=== PATIENT | male | born 1930 | race Caucasian/White ===

== ENCOUNTER 2016-05-15 05:24 | Emergency (ER) | payer MEDICARE ==
[2016-05-15] MEDS ORDERED: Aspirin Low Dose CHEW TAB* 81 MG PO ONE (05:38)
[2016-05-15] MEDS ORDERED: NS 0.9% 1000 ML* 1,000 ML IV SCH (05:45)
[2016-05-15 06:24] LABS: Hematocrit 41 % (42-52); Hemoglobin 13.9 g/dl (14.0-18.0); Mean Corpuscular HGB Conc 34 g/dl (31-36); Mean Corpuscular Hemoglobin 30 pg (27-31); Mean Corpuscular Volume 89 fL (80-94); Mean Platelet Volume 10 um3 (7.4-10.4); Red Blood Count 4.56 10^6/ul (4.0-5.4); Red Cell Distribution Width 13 % (10.5-15); White Blood Count 9.4 10^3/ul (3.5-10.8)
[2016-05-15 06:37] LABS: Troponin I 0.01 ng/mL (<0.04)
[2016-05-15 06:38] LABS: BUN/Creatinine Ratio 22.1 (8-20); C Reactive Protein 19.85 mg/L (< 5.00); Calcium 9.7 mg/dL (8.6-10.3); EGFR African American 57.6 (>60); EGFR Non-African American 44.8 (>60); Magnesium 1.8 mg/dL (1.9-2.7); Potassium 4.6 mmol/L (3.5-5.0); Total Bilirubin 0.9 mg/dL (0.2-1.0)
[2016-05-15 07:05] LABS: TSH (Thyroid Stimulating Horm) 2.17 mcIU/mL (0.34-5.60)
[2016-05-15 07:07] LABS: Urine Bilirubin Negative (Negative); Urine Glucose 3+(>=500 mg/dL) (Negative); Urine Nitrite Negative (Negative)
[2016-05-15] MEDS ORDERED: Ibuprofen TAB* 200 MG PO ONE (07:09)
--- NOTE | 2016-05-15 07:12 | ED ---
Dajuan Gutierrez Adam, scribed for Toñito Connors MD on 05/15/16 at 0546 . HPI Chest Pain - HPI Summary HPI Summary: Pt is an 86 year old male presenting with intermittent CP since falling 2 nights ago. He states that he fell in the bathroom 2 nights ago and struck the side of his body on the bathtub. He is unsure what caused him to fall, but he has been c/o intermittent pain in his left ribs since the fall. He did not go to the hospital after the fall until this morning. He states that the pain set on at approximately 04:15 this morning after he went to the bathroom. He describes it as the same left-sided rib pain he has been having since the fall but states that it is worse this morning. Movement, palpation, and deep breaths aggravate the pain. Pt denies abdominal pain and arthralgia. He states that fluid intake and bowel/ bladder function have been normal. PMHx of HTN and DM, both controlled by meds. He also reports chronic numbness in his feet for several years. - History of Current Complaint Hx Obtained From: Patient Onset/Duration: Started Days Ago, Traumatic, Still Present Timing: Constant, Lasting Days Initial Severity: Mild Current Severity: Moderate Pain Intensity: 2 Pain Scale Used: 0-10 Numeric Chest Pain Location: Left Lateral Chest Pain Radiates: No Aggravating Factor(s): Movement, Deep Breaths, Other: - Palpation Alleviating Factor(s): Nothing Associated Signs and Symptoms: Positive: Negative - Allergy/Home Medications Allergies/Adverse Reactions: Allergies Allergy/AdvReac Type Severity Reaction Status Date / Time No Known Allergies Allergy Verified 12/06/15 19:30 PMH/Surg Hx/FS Hx/Imm Hx Endocrine/Hematology History: Reports: Hx Anticoagulant Therapy - aspirin daily. , Hx Diabetes Denies: Hx Thyroid Disease Cardiovascular History: Reports: Hx Hypertension Denies: Hx Congestive Heart Failure, Hx Deep Vein Thrombosis, Hx Myocardial Infarction, Hx Pacemaker/ICD Respiratory History: Denies: Hx Asthma, Hx Chronic Obstructive Pulmonary Disease (COPD), Hx Lung Cancer, Hx Pneumonia, Hx Pulmonary Embolism GI History: Denies: Hx Gall Bladder Disease, Hx Gastrointestinal Bleed, Hx Ulcer, Hx Urosepsis History: Denies: Hx Kidney Stones, Hx Renal Disease Neurological History: Denies: Hx Dementia, Hx Migraine, Hx Seizures, Hx Transient Ischemic Attacks (TIA) Psychiatric History: Denies: Hx Anxiety, Hx Depression, Hx Schizophrenia, Hx Bipolar Disorder - Surgical History Surgery Procedure, Year, and Place: benign colon tumor Infectious Disease History: No Infectious Disease History: Denies: Hx Clostridium Difficile, Hx Hepatitis, Hx Human Immunodeficiency Virus (HIV), Hx of Known/Suspected MRSA, Hx Shingles, Hx Tuberculosis, Hx Known/ Suspected VRE, Hx Known/Suspected VRSA, History Other Infectious Disease, Traveled Outside the [place] in Last 30 Days - Family History Known Family History: Positive: Cardiac Disease Negative: Hypertension, Diabetes, Renal Disease - Social History Occupation: Retired Lives: With Family - Alcohol Use: None Hx Substance Use: No Substance Use Type: Reports: None Hx Tobacco Use: Yes Smoking Status (MU): Former Smoker Type: Cigarettes Length of Time of Smoking/Using Tobacco: 38 years Have You Smoked in the Last Year: No Review of Systems Positive: Chest Pain Negative: Abdominal Pain Positive: Myalgia - Left ribs. Negative: Arthralgia Positive: Numbness - Chronic in feet All Other Systems Reviewed And Are Negative: Yes Physical Exam Triage Information Reviewed: Yes Vital Signs On Initial Exam: Initial Vitals Temp Pulse Resp BP Pulse Ox 98.4 F 69 18 174/75 95 05/15/16 05:26 05/15/16 05:26 05/15/16 05:26 05/15/16 05:26 05/15/16 05:26 Vital Signs Reviewed: Yes Appearance: Positive: Well-Appearing, No Pain Distress Skin: Positive: Warm, Skin Color Reflects Adequate Perfusion, Dry Head/Face: Positive: Normal Head/Face Inspection Eyes: Positive: EOMI, DOREEN ENT: Positive: Normal ENT inspection Neck: Positive: Supple, Nontender Respiratory/Lung Sounds: Positive: Clear to Auscultation, Breath Sounds Present Cardiovascular: Positive: RRR Abdomen Description: Positive: Nontender, Soft Bowel Sounds: Positive: Present Musculoskeletal: Positive: Strength/ROM Intact, Other - Tenderness to palpation in the left lateral lower ribs Neurological: Positive: Normal, Sensory/Motor Intact, Alert, Oriented to Person Place, Time Psychiatric: Positive: Affect/Mood Appropriate Diagnostics - Vital Signs Vital Signs Temp Pulse Resp BP Pulse Ox 05/15/16 05:26 98.4 F 69 18 174/75 95 - Laboratory Lab Results: Lab Results 05/15/16 05/15/16 05/15/16 Range/Units 06:00 06:00 06:00 WBC 9.4 (3.5-10.8) 10^3/ul RBC 4.56 (4.0-5.4) 10^6/ul Hgb 13.9 L (14.0-18.0) g/dl Hct 41 L (42-52) % MCV 89 (80-94) fL MCH 30 (27-31) pg MCHC 34 (31-36) g/dl RDW 13 (10.5-15) % Plt Count 118 L (150-450) 10^3/ul MPV 10 (7.4-10.4) um3 Neut % (Auto) 79.1 (38-83) % Lymph % (Auto) 12.7 L (25-47) % [place] % (Auto) 6.1 (1-9) % Eos % (Auto) 1.6 (0-6) % Baso % (Auto) 0.5 (0-2) % Absolute Neuts (auto) 7.4 (1.5-7.7) 10^3/ul Absolute Lymphs (auto) 1.2 (1.0-4.8) 10^3/ul Absolute Monos (auto) 0.6 (0-0.8) 10^3/ul Absolute Eos (auto) 0.1 (0-0.6) 10^3/ul Absolute Basos (auto) 0 (0-0.2) 10^3/ul Absolute Nucleated RBC 0 10^3/ul Nucleated RBC % 0 INR (Anticoag Therapy) (0.89-1.11) APTT (26.0-36.3) seconds D-Dimer, Quantitative (Less Than 230) ng/mL Sodium 132 L (133-145) mmol/L Potassium 4.6 (3.5-5.0) mmol/L Chloride 98 L (101-111) mmol/L Carbon Dioxide 24 (22-32) mmol/L Anion Gap 10 (2-11) mmol/L BUN 33 H (6-24) mg/dL Creatinine 1.49 H (0.67-1.17) mg/dL Est GFR ( Amer) 57.6 (>60) Est GFR (Non-Af Amer) 44.8 (>60) BUN/Creatinine Ratio 22.1 H (8-20) Glucose 425 H (70-100) mg/dL Lactic Acid 1.3 (0.5-2.0) mmol/L Calcium 9.7 (8.6-10.3) mg/dL Magnesium 1.8 L (1.9-2.7) mg/dL Total Bilirubin 0.90 (0.2-1.0) mg/dL AST 17 (13-39) U/L ALT 26 (7-52) U/L Alkaline Phosphatase 79 (34-104) U/L Total Creatine Kinase 61 (10-223) U/L CK-MB (CK-2) 1.1 (0.6-6.3) ng/mL Troponin I 0.01 (<0.04) ng/mL C-Reactive Protein 19.85 H (< 5.00) mg/L B-Natriuretic Peptide ( - 100) pg/mL Total Protein 7.0 (6.4-8.9) g/dL Albumin 4.0 (3.2-5.2) g/dL Globulin 3.0 (2-4) g/dL Albumin/Globulin Ratio 1.3 (1-3) Lipase 23 (11.0-82.0) U/L TSH 2.17 (0.34-5.60) mcIU/mL Urine Color Urine Appearance Urine pH (5-9) Ur Specific [place] (1.010-1.030) Urine Protein (Negative) Urine Ketones (Negative) Urine Blood (Negative) Urine Nitrate (Negative) Urine Bilirubin (Negative) Urine Urobilinogen (Negative) Ur Leukocyte Esterase (Negative) Urine Glucose (Negative) 05/15/16 05/15/16 05/15/16 Range/Units 06:00 06:30 06:40 WBC (3.5-10.8) 10^3/ul RBC (4.0-5.4) 10^6/ul Hgb (14.0-18.0) g/dl Hct (42-52) % MCV (80-94) fL MCH (27-31) pg MCHC (31-36) g/dl RDW (10.5-15) % Plt Count (150-450) 10^3/ul MPV (7.4-10.4) um3 Neut % (Auto) (38-83) % Lymph % (Auto) (25-47) % [place] % (Auto) (1-9) % Eos % (Auto) (0-6) % Baso % (Auto) (0-2) % Absolute Neuts (auto) (1.5-7.7) 10^3/ul Absolute Lymphs (auto) (1.0-4.8) 10^3/ul Absolute Monos (auto) (0-0.8) 10^3/ul Absolute Eos (auto) (0-0.6) 10^3/ul Absolute Basos (auto) (0-0.2) 10^3/ul Absolute Nucleated RBC 10^3/ul Nucleated RBC % INR (Anticoag Therapy) 0.97 (0.89-1.11) APTT 24.6 L (26.0-36.3) seconds D-Dimer, Quantitative 275 H (Less Than 230) ng/mL Sodium (133-145) mmol/L Potassium (3.5-5.0) mmol/L Chloride (101-111) mmol/L Carbon Dioxide (22-32) mmol/L Anion Gap (2-11) mmol/L BUN (6-24) mg/dL Creatinine (0.67-1.17) mg/dL Est GFR ( Amer) (>60) Est GFR (Non-Af Amer) (>60) BUN/Creatinine Ratio (8-20) Glucose (70-100) mg/dL Lactic Acid (0.5-2.0) mmol/L Calcium (8.6-10.3) mg/dL Magnesium (1.9-2.7) mg/dL Total Bilirubin (0.2-1.0) mg/dL AST (13-39) U/L ALT (7-52) U/L Alkaline Phosphatase (34-104) U/L Total Creatine Kinase (10-223) U/L CK-MB (CK-2) (0.6-6.3) ng/mL Troponin I (<0.04) ng/mL C-Reactive Protein (< 5.00) mg/L B-Natriuretic Peptide 86 ( - 100) pg/mL Total Protein (6.4-8.9) g/dL Albumin (3.2-5.2) g/dL Globulin (2-4) g/dL Albumin/Globulin Ratio (1-3) Lipase (11.0-82.0) U/L TSH (0.34-5.60) mcIU/mL Urine Color Yellow Urine Appearance Clear Urine pH 5.0 (5-9) Ur Specific [place] 1.018 (1.010-1.030) Urine Protein Negative (Negative) Urine Ketones Trace H (Negative) Urine Blood Negative (Negative) Urine Nitrate Negative (Negative) Urine Bilirubin Negative (Negative) Urine Urobilinogen Negative (Negative) Ur Leukocyte Esterase Negative (Negative) Urine Glucose 3+(>=500 mg/dl) H (Negative) Result Diagrams: 05/15/16 06:00 05/15/16 06:00 Lab Statement: Any lab studies that have been ordered have been reviewed, and results considered in the medical decision making process. Chest Pain Course/Dx - Course Assessment/Plan: DISCUSSED RESULTS WITH PATIENT. THE PAIN THE PATIENT CAME FOR IS REPRODUCED BY PALPATION OF THE LEFT LATERAL RIBS AT THE SITE OF THE FRACTURES SEEN ON CXR. DISCHARGE HOME STABLE. - Diagnoses Provider Diagnoses: Rib fractures Discharge - Discharge Plan Condition: Stable Disposition: HOME Patient Education Materials: Ibuprofen (By mouth), How to Use an Incentive Spirometer (ED), Rib Fracture (ED) Additional Instructions: FOLLOW UP WITH YOUR DOCTOR. RETURN TO THE EMERGENCY DEPARTMENT FOR ANY WORSENING OF YOUR CONDITION OR QUESTIONS OR CONCERNS. The documentation as recorded by the Dajuan gómez Adam accurately reflects the service I personally performed and the decisions made by me, Toñito Connors MD.
[2016-05-15 07:46] VITALS: BP 164/79
--- NOTE | 2016-05-15 08:28 | RAD ---
Indication: Chest pain. 2 views of the chest demonstrates no mediastinal shift. Heart is of normal size and configuration. Lung block appear clear. There are no prior studies available for comparison. IMPRESSION: No active cardiopulmonary disease is noted.
--- NOTE | 2016-05-15 08:29 | RAD ---
INDICATION: Left-sided chest pain 2 days after a fall COMPARISON: None. TECHNIQUE: 4 views of the left ribs were obtained. FINDINGS: Minimally displaced fractures are identified involving the left lateral eighth and ninth ribs. There is no pneumothorax. The heart and lungs are otherwise clear. IMPRESSION: Minimally displaced fractures of the lateral left eighth and ninth ribs.
== END 2016-05-15 07:45 | disposition home or self-care (01) ==
LOC: ED 05:24
DX: S22.42XA Multiple fractures of ribs, left side, initial encounter for closed fracture (principal); R07.9 Chest pain, unspecified; R07.81 Pleurodynia; Z87.891 Personal history of nicotine dependence; W19.XXXA Unspecified fall, initial encounter; Y93.9 Activity, unspecified; Y92.9 Unspecified place or not applicable; Y99.9 Unspecified external cause status
CPT/HCPCS: 36415; 71020; 80053; 81003; 82550; 82553; 83605; 83690; 83735; 83880; 84443; 84484; 85025; 85379; 85610; 85730; 86140; 93005; 99283; A9270-GY

== ENCOUNTER 2020-11-21 13:44 | Inpatient (IN) ==
[2020-11-21 14:30] LABS: ABS Basophils 0.1 10^3/ul (0-0.2); ABS Lymphocytes 0.8 10^3/ul (1.0-4.8); ABS Monocytes 0.4 10^3/ul (0-0.8); Eosinophil % 0.4 %; Hematocrit 48 % (42-52); Hemoglobin 16.1 g/dL (14.0-18.0); Lymphocyte % 11.4 %; Mean Corpuscular HGB Conc 34 g/dL (31-36); Mean Corpuscular Hemoglobin 32 pg (27-31); Mean Corpuscular Volume 96 fL (80-94); Mean Platelet Volume 9.3 fL (7.4-10.4); Platelet Count 144 10^3/uL (150-450); Red Blood Count 4.99 10^6 /uL (4.18-5.48); Red Cell Distribution Width 14 % (10-15); White Blood Count 7.3 10^3/uL (3.5-10.8)
[2020-11-21 14:48] LABS: ALT 42 U/L (7-52); Albumin 4.1 g/dL (3.2-5.2); Albumin/Globulin Ratio 1.4 (1-3); Alkaline Phosphatase 87 U/L (35-149); Blood Urea Nitrogen 45 mg/dL (6-24); CO2 Carbon Dioxide 24 mmol/L (22-32); Calcium 9.7 mg/dL (8.6-10.3); Chloride 108 mmol/L (101-111); EGFR African American 61.3 (>60); EGFR Non-African American 50.6 (>60); Glucose 195 mg/dL (70-100); Magnesium 1.9 mg/dL (1.9-2.7); Sodium 141 mmol/L (135-145); Total Protein 7.1 g/dL (6.4-8.9)
[2020-11-21 14:49] LABS: Troponin I 0.01 ng/mL (<0.03)
[2020-11-21] MEDS ORDERED: Lidocaine/Epineph/Tetraca GEL 3 ML GEL IN SYR TOPICAL ONE (14:55)
[2020-11-21 15:03] LABS: Anion Gap 9 mmol/L (2-11)
[2020-11-21 15:32] LABS: TSH Ultra Thyroid Stim Horm 2.93 mcIU/mL (0.34-5.60)
[2020-11-21] MEDS ORDERED: Magnesium Hydroxide LIQ 30 ML UDC PO PRN (17:15)
[2020-11-21 18:37] LABS: Creatine Kinase 65 U/L (10-223)
[2020-11-21 19:53] LABS: Urine Appearance Clear; Urine Bilirubin Negative (Negative); Urine Blood Negative (Negative); Urine Color Yellow; Urine Glucose 3+(>=500 mg/dL) (Negative); Urine Ketones Negative (Negative); Urine Nitrite Negative (Negative); Urine Protein Negative (Negative); Urine Specific Gravity 1.021 (1.002-1.030); Urine Urobilinogen Negative (Negative)
[2020-11-21] MEDS ORDERED: Dextran 70/Hypromellose Tears Eye Drops 15 ml BTL (for Artificials Tears) BOTH EYES PRN (20:22)
[2020-11-22 05:58] LABS: Anion Gap 9 mmol/L (2-11); Blood Urea Nitrogen 44 mg/dL (6-24); CO2 Carbon Dioxide 26 mmol/L (22-32); Calcium 9.6 mg/dL (8.6-10.3); Chloride 106 mmol/L (101-111); EGFR African American 56.8 (>60); EGFR Non-African American 46.9 (>60); Glucose 140 mg/dL (70-100); Potassium 4.1 mmol/L (3.5-5.0); Sodium 141 mmol/L (135-145)
[2020-11-22] MEDS: EMPAGLIFLOZIN 25 MG PO SCH (09:17)
[2020-11-22] MEDS: Cholecalciferol (VIT D3) 1,000 unit TAB PO SCH (09:17)
[2020-11-22 11:29] LABS: Troponin I 0.04 ng/mL (<0.03)
[2020-11-22] MEDS ORDERED: Lidocaine 1% w EPI 1:100,000 MDV 20 ML VIAL ONE (12:21)
[2020-11-22 14:47] LABS: Potassium 4.6 mmol/L (3.5-5.0)
[2020-11-22 15:17] LABS: Troponin I 0.03 ng/mL (<0.03)
[2020-11-23 07:12] LABS: Calcium 9.3 mg/dL (8.6-10.3); EGFR African American 68.3 (>60); EGFR Non-African American 56.5 (>60); Potassium 4.1 mmol/L (3.5-5.0)
[2020-11-23] MEDS: EMPAGLIFLOZIN 25 MG PO SCH (08:55)
[2020-11-23] MEDS: Cholecalciferol (VIT D3) 1,000 unit TAB PO SCH (09:00)
[2020-11-23] MEDS ORDERED: Aminophylline 25 MG/ML VIAL ONE (10:32)
[2020-11-23] MEDS ORDERED: Regadenoson 0.4 MG/5 ML SYRINGE ONE (10:32)
[2020-11-24] MEDS: Cholecalciferol (VIT D3) 1,000 unit TAB PO SCH (09:07)
[2020-11-24 09:09] LABS: Calcium 8.9 mg/dL (8.6-10.3)
[2020-11-24] MEDS: EMPAGLIFLOZIN 25 MG PO SCH (09:09)
[2020-11-24 09:14] LABS: EGFR African American 52.5 (>60); EGFR Non-African American 43.4 (>60)
[2020-11-24 09:21] LABS: Potassium 4.4 mmol/L (3.5-5.0)
[2020-11-25 07:16] LABS: ABS Eosinophils 0.1 10^3/ul (0-0.6); ABS Lymphocytes 1.3 10^3/ul (1.0-4.8); ABS Monocytes 0.6 10^3/ul (0-0.8); Eosinophil % 2.4 %; Hematocrit 48 % (42-52); Mean Corpuscular HGB Conc 34 g/dL (31-36); Mean Corpuscular Hemoglobin 32 pg (27-31); Mean Corpuscular Volume 96 fL (80-94); Mean Platelet Volume 9.4 fL (7.4-10.4); Nucleated Red Blood Cells % 0.1; Platelet Count 118 10^3/uL (150-450); Red Blood Count 4.97 10^6 /uL (4.18-5.48); Red Cell Distribution Width 14 % (10-15); White Blood Count 6.1 10^3/uL (3.5-10.8)
[2020-11-25 07:34] LABS: Calcium 9.6 mg/dL (8.6-10.3)
[2020-11-25 07:38] LABS: Potassium 5.1 mmol/L (3.5-5.0)
[2020-11-25 07:40] LABS: EGFR African American 56.3 (>60); EGFR Non-African American 46.6 (>60)
[2020-11-25] MEDS: Cholecalciferol (VIT D3) 1,000 unit TAB PO SCH (09:26)
[2020-11-25] MEDS: EMPAGLIFLOZIN 25 MG PO SCH (09:38)
[2020-11-26 07:41] LABS: Calcium 8.8 mg/dL (8.6-10.3); EGFR African American 52.9 (>60); EGFR Non-African American 43.7 (>60); Magnesium 1.8 mg/dL (1.9-2.7)
[2020-11-26] MEDS ORDERED: Magnesium Sulfate 2 gm BAG 2 GM/50 ML BAG IVPB ONE (08:29)
[2020-11-26] MEDS: Cholecalciferol (VIT D3) 1,000 unit TAB PO SCH (08:50)
[2020-11-26] MEDS: EMPAGLIFLOZIN 25 MG PO SCH (11:02)
[2020-11-27 07:45] LABS: Calcium 9.3 mg/dL (8.6-10.3); EGFR African American 45.8 (>60); EGFR Non-African American 37.9 (>60); Magnesium 2.4 mg/dL (1.9-2.7)
[2020-11-27 07:50] LABS: Potassium 5.2 mmol/L (3.5-5.0)
[2020-11-27] MEDS: EMPAGLIFLOZIN 25 MG PO SCH (09:01)
[2020-11-27] MEDS: Cholecalciferol (VIT D3) 1,000 unit TAB PO SCH (09:08)
[2020-11-27] MEDS ORDERED: NS 0.9% 1000 ml BAG 1,000 ML IV ONE (10:58)
[2020-11-27 20:42] LABS: Urine Creatinine Concentration 62.32 mg/dL; Urine Potassium Concentration 26.6 mmol/L
[2020-11-28 06:29] LABS: ABS Basophils 0.1 10^3/ul (0-0.2); ABS Eosinophils 0.2 10^3/ul (0-0.6); ABS Monocytes 0.6 10^3/ul (0-0.8); Eosinophil % 2.9 %; Hematocrit 44 % (42-52); Hemoglobin 14.7 g/dL (14.0-18.0); Lymphocyte % 16.9 %; Mean Corpuscular HGB Conc 34 g/dL (31-36); Mean Corpuscular Hemoglobin 33 pg (27-31); Mean Corpuscular Volume 96 fL (80-94); Mean Platelet Volume 9.3 fL (7.4-10.4); Platelet Count 127 10^3/uL (150-450); Red Blood Count 4.53 10^6 /uL (4.18-5.48); Red Cell Distribution Width 14 % (10-15); White Blood Count 5.8 10^3/uL (3.5-10.8)
[2020-11-28 06:45] LABS: EGFR African American 62.9 (>60); Magnesium 2.1 mg/dL (1.9-2.7)
[2020-11-28 06:47] LABS: Potassium 5.7 mmol/L (3.5-5.0)
[2020-11-28] MEDS: Cholecalciferol (VIT D3) 1,000 unit TAB PO SCH (08:29)
[2020-11-28] MEDS ORDERED: SODIUM ZIRCONIUM CYCLOSILICATE 10 GM PACKET PO ONE (10:20)
[2020-11-28 14:40] LABS: Blood Urea Nitrogen 56 mg/dL (6-24); CO2 Carbon Dioxide 23 mmol/L (22-32); Calcium 9.4 mg/dL (8.6-10.3); Chloride 105 mmol/L (101-111); EGFR African American 73.2 (>60); EGFR Non-African American 60.5 (>60); Glucose 107 mg/dL (70-100); Sodium 136 mmol/L (135-145)
[2020-11-28 16:02] LABS: Anion Gap 8 mmol/L (2-11)
[2020-11-28 18:02] LABS: Blood Urea Nitrogen 54 mg/dL (6-24); CO2 Carbon Dioxide 23 mmol/L (22-32); Calcium 9.3 mg/dL (8.6-10.3); Chloride 107 mmol/L (101-111); EGFR Non-African American 55.4 (>60); Glucose 138 mg/dL (70-100); Sodium 138 mmol/L (135-145)
[2020-11-28 18:07] LABS: Anion Gap 8 mmol/L (2-11)
[2020-11-28 20:53] LABS: Potassium, Whole Blood 5.4 mmol/L (3.4-4.5)
[2020-11-29 07:45] LABS: Calcium 9.1 mg/dL (8.6-10.3); EGFR African American 67.7 (>60); EGFR Non-African American 55.9 (>60)
[2020-11-29 08:12] LABS: Potassium 5.1 mmol/L (3.5-5.0)
[2020-11-29] MEDS: Cholecalciferol (VIT D3) 1,000 unit TAB PO SCH (08:59)
[2020-11-29 09:25] VITALS: BP 110/64
== END 2020-11-29 14:00 | DRG 261 ==
LOC: MEDTELE 13:44 → ED 13:44 → SUATTDRO 17:15 → MEDTELE 20:58 → SUATTDRO 11-23 11:00
PROVIDERS: ADMIT Student in an Organized Health Care Education/Training Program; ATTEND Internal Medicine

== ENCOUNTER 2021-03-12 00:42 | Inpatient (IN) ==
[2021-03-12 01:52] LABS: ABS Basophils 0.1 10^3/ul (0-0.2); ABS Eosinophils 0.1 10^3/ul (0-0.6); ABS Lymphocytes 0.7 10^3/ul (1.0-4.8); ABS Monocytes 0.7 10^3/ul (0-0.8); ABS Neutrophils 6.9 10^3/ul (1.5-7.7); Eosinophil % 0.7 %; Hematocrit 51 % (42-52); Hemoglobin 16.6 g/dL (14.0-18.0); Lymphocyte % 8.8 %; Mean Corpuscular HGB Conc 33 g/dL (31-36); Mean Corpuscular Hemoglobin 32 pg (27-31); Mean Corpuscular Volume 97 fL (80-94); Mean Platelet Volume 10.2 fL (7.4-10.4); Nucleated Red Blood Cells % 0.1; Platelet Count 133 10^3/uL (150-450); Red Blood Count 5.24 10^6 /uL (4.18-5.48); Red Cell Distribution Width 15 % (10-15); White Blood Count 8.5 10^3/uL (3.5-10.8)
[2021-03-12 02:08] LABS: ALT 39 U/L (7-52); Albumin 3.8 g/dL (3.2-5.2); Albumin/Globulin Ratio 1.6 (1-3); Alkaline Phosphatase 97 U/L (35-149); Blood Urea Nitrogen 34 mg/dL (6-24); CO2 Carbon Dioxide 25 mmol/L (22-32); Calcium 9.6 mg/dL (8.6-10.3); Chloride 103 mmol/L (101-111); Creatine Kinase 39 U/L (10-223); Globulin 2.4 g/dL (2-4); Glucose 168 mg/dL (70-100); Sodium 139 mmol/L (135-145); Total Protein 6.2 g/dL (6.4-8.9); eGFR CKD-EPI 43.9 (>60)
[2021-03-12 02:12] LABS: AST 36 U/L (13-39); Anion Gap 11 mmol/L (2-11); Potassium 4.6 mmol/L (3.5-5.0)
[2021-03-12 02:28] LABS: Troponin I 0.03 ng/mL (<0.03)
[2021-03-12] MEDS ORDERED: Furosemide 40 mg/4 ml IV VIAL IV ONE ×2 (04:37→16:00)
[2021-03-12 05:32] LABS: Troponin I 0.03 ng/mL (<0.03)
[2021-03-12 05:33] LABS: Rapid COVID-19 Molecular Undetected (Undetected)
[2021-03-12] MEDS ORDERED: Dextrose 50% Syringe 50 ml 25 GM/50 ML SYRINGE IV PUSH PRN (07:01)
[2021-03-12] MEDS ORDERED: Dextran 70/Hypromellose Tears Eye Drops 15 ml BTL (for Artificials Tears) BOTH EYES PRN (07:02)
[2021-03-12] MEDS ORDERED: OMEGA PO SCH (09:00)
[2021-03-12] MEDS ORDERED: FATTY ACID PO SCH (09:00)
[2021-03-12] MEDS: Cholecalciferol (VIT D3) 1,000 unit TAB PO SCH (13:23)
[2021-03-12] MEDS ORDERED: Magnesium Hydroxide LIQ 30 ML UDC PO PRN (15:49)
[2021-03-12] MEDS ORDERED: Polyethylene Glycol 3350 17 GM PACKET PO PRN (15:49)
[2021-03-12] MEDS ORDERED: Senna TAB 8.6 mg TAB PO PRN (15:49)
[2021-03-12] MEDS: Magnesium Hydroxide LIQ 30 ML UDC PO SCH (20:51)
[2021-03-13] MEDS: Cholecalciferol (VIT D3) 1,000 unit TAB PO SCH (10:24)
[2021-03-13] MEDS: Magnesium Hydroxide LIQ 30 ML UDC PO SCH ×2 (10:25→21:35)
[2021-03-13] MEDS: CMC:OMEGA-3 FATTY ACID 1000 mg(NF) PO SCH (10:26)
[2021-03-14 06:25] LABS: ABS Eosinophils 0.2 10^3/ul (0-0.6); ABS Lymphocytes 0.7 10^3/ul (1.0-4.8); ABS Monocytes 0.5 10^3/ul (0-0.8); Eosinophil % 3.8 %; Hematocrit 51 % (42-52); Hemoglobin 16.1 g/dL (14.0-18.0); Lymphocyte % 11.4 %; Mean Corpuscular HGB Conc 32 g/dL (31-36); Mean Corpuscular Hemoglobin 32 pg (27-31); Mean Corpuscular Volume 101 fL (80-94); Mean Platelet Volume 10.4 fL (7.4-10.4); Nucleated Red Blood Cells % 0.1; Platelet Count 116 10^3/uL (150-450); Red Blood Count 5.05 10^6 /uL (4.18-5.48); Red Cell Distribution Width 16 % (10-15); White Blood Count 6.5 10^3/uL (3.5-10.8)
[2021-03-14] MEDS: Magnesium Hydroxide LIQ 30 ML UDC PO SCH ×2 (08:18→21:15)
[2021-03-14] MEDS: Cholecalciferol (VIT D3) 1,000 unit TAB PO SCH (08:19)
[2021-03-14] MEDS: CMC:OMEGA-3 FATTY ACID 1000 mg(NF) PO SCH (08:19)
[2021-03-14 08:41] LABS: Calcium 9.1 mg/dL (8.6-10.3); Potassium 4.4 mmol/L (3.5-5.0)
[2021-03-14 08:42] LABS: Magnesium 2.6 mg/dL (1.9-2.7)
[2021-03-15 06:54] LABS: ABS Eosinophils 0.3 10^3/ul (0-0.6); ABS Lymphocytes 0.8 10^3/ul (1.0-4.8); ABS Monocytes 0.6 10^3/ul (0-0.8); ABS Neutrophils 4.6 10^3/ul (1.5-7.7); Eosinophil % 4.8 %; Hematocrit 49 % (42-52); Mean Corpuscular HGB Conc 33 g/dL (31-36); Mean Corpuscular Hemoglobin 32 pg (27-31); Mean Corpuscular Volume 97 fL (80-94); Mean Platelet Volume 10.6 fL (7.4-10.4); Platelet Count 109 10^3/uL (150-450); Red Blood Count 5.03 10^6 /uL (4.18-5.48); Red Cell Distribution Width 15 % (10-15); White Blood Count 6.3 10^3/uL (3.5-10.8)
[2021-03-15 07:12] LABS: Calcium 8.9 mg/dL (8.6-10.3); Magnesium 2.8 mg/dL (1.9-2.7); eGFR CKD-EPI 47.2 (>60)
[2021-03-15] MEDS: Magnesium Hydroxide LIQ 30 ML UDC PO SCH ×2 (08:21→22:40)
[2021-03-15] MEDS: CMC:OMEGA-3 FATTY ACID 1000 mg(NF) PO SCH (08:21)
[2021-03-15] MEDS: Cholecalciferol (VIT D3) 1,000 unit TAB PO SCH (08:21)
[2021-03-16 06:03] LABS: ABS Basophils 0.1 10^3/ul (0-0.2); ABS Eosinophils 0.3 10^3/ul (0-0.6); ABS Lymphocytes 0.8 10^3/ul (1.0-4.8); ABS Monocytes 0.5 10^3/ul (0-0.8); ABS Neutrophils 5.2 10^3/ul (1.5-7.7); Eosinophil % 3.8 %; Hematocrit 49 % (42-52); Hemoglobin 16.3 g/dL (14.0-18.0); Lymphocyte % 11.3 %; Mean Corpuscular HGB Conc 33 g/dL (31-36); Mean Corpuscular Hemoglobin 32 pg (27-31); Mean Corpuscular Volume 97 fL (80-94); Mean Platelet Volume 10.4 fL (7.4-10.4); Nucleated Red Blood Cells % 0.1; Platelet Count 123 10^3/uL (150-450); Red Blood Count 5.06 10^6 /uL (4.18-5.48); Red Cell Distribution Width 15 % (10-15); White Blood Count 6.9 10^3/uL (3.5-10.8)
[2021-03-16 06:30] LABS: Calcium 9.2 mg/dL (8.6-10.3); Potassium 4.7 mmol/L (3.5-5.0); eGFR CKD-EPI 45.3 (>60)
[2021-03-16] MEDS: Cholecalciferol (VIT D3) 1,000 unit TAB PO SCH (08:19)
[2021-03-16] MEDS: CMC:OMEGA-3 FATTY ACID 1000 mg(NF) PO SCH (08:21)
[2021-03-16] MEDS: Magnesium Hydroxide LIQ 30 ML UDC PO SCH ×2 (08:22→22:12)
[2021-03-17 07:29] LABS: ABS Eosinophils 0.3 10^3/ul (0-0.6); ABS Lymphocytes 0.6 10^3/ul (1.0-4.8); ABS Monocytes 0.5 10^3/ul (0-0.8); ABS Neutrophils 5.6 10^3/ul (1.5-7.7); Eosinophil % 4.2 %; Hematocrit 48 % (42-52); Lymphocyte % 8.4 %; Mean Corpuscular HGB Conc 34 g/dL (31-36); Mean Corpuscular Hemoglobin 32 pg (27-31); Mean Corpuscular Volume 96 fL (80-94); Mean Platelet Volume 10.3 fL (7.4-10.4); Platelet Count 105 10^3/uL (150-450); Red Blood Count 4.95 10^6 /uL (4.18-5.48); Red Cell Distribution Width 15 % (10-15)
[2021-03-17 07:40] LABS: Potassium 4.4 mmol/L (3.5-5.0); eGFR CKD-EPI 52.5 (>60)
[2021-03-17] MEDS: Magnesium Hydroxide LIQ 30 ML UDC PO SCH (08:27)
[2021-03-17] MEDS: CMC:OMEGA-3 FATTY ACID 1000 mg(NF) PO SCH (09:02)
[2021-03-17] MEDS: Cholecalciferol (VIT D3) 1,000 unit TAB PO SCH (09:04)
[2021-03-17 13:54] VITALS: BP 100/76
[2021-03-17] MEDS ORDERED: Lidocaine PATCH 5% PATCH TRANSDERM SCH (15:00)
[2021-03-17] MEDS ORDERED: Lidocaine Patch REMOVE NOTE PATCH OFF SCH (21:00)
== END 2021-03-17 16:25 | disposition home or self-care (01) | DRG 184 ==
LOC: ED 00:42 → EDHOLD 07:41 → SUATTDRO 07:41 → MEDTELE 16:12
PROVIDERS: ADMIT Internal Medicine; ATTEND Hospitalist